=== PATIENT | male | born 1970 | race Caucasian/White ===

== ENCOUNTER 2020-01-23 06:54 | Outpatient (NON) | payer OTHER, SELFPAY ==
[2020-01-23 19:54] LABS: SARS-CoV-2 RNA PCR Negative
== END 2020-01-23 06:55 ==
LOC: ANHCOVIDDT 07:17
PROVIDERS: Visit Provider Family Medicine
DX: R68.89 Other general symptoms and signs (principal); Z20.828 Contact with and (suspected) exposure to other viral communicable diseases
CPT/HCPCS: 87635; C9803; U0003

== ENCOUNTER 2023-10-18 09:03 | Emergency (ER) | payer OTHER, SELFPAY ==
--- NOTE | 2023-10-18 09:04 | ED.EXTPRO ---
HPI - Extremity Problem General Chief complaint: Extremity Problem,Nontraumatic Stated complaint: Left Hand Finger Pain Time Seen by Provider: 10/18/23 09:04 Source: patient Mode of arrival: ambulatory Limitations: no limitations History of Present Illness HPI Narrative: Rebekah is a 53-year-old male patient presenting to the clinic today with complaints of left hand index and pinky pain/cyanosis for the past month. He reports over the winter months his hands were ruled cold but not painful at that time. States over the last month the pain has gradually gotten worse. States he is only able to sleep for 15 minutes at a time and the pain worsen wakes him up. Has temperature change (poikilothermia) to his 2nd and 5th finger of the left hand when compared to the other fingers on that hand as well as to the right hand. States has pain with gripping. 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 No known injury to the left hand/fingers. Does not take any medications other than [id number] vitamins. No past medical history known- denies auto immune disorders or Raynauds. Patient has not seen a medical provider in several years. States he has an appointment in 3 weeks with a primary care provider. He denies any chest pain, shortness of breath, or neck pain. Related Data Home Medications Medication Instructions Recorded Confirmed No Home Medications 10/18/23 10/18/23 Allergies Allergy/AdvReac Type Severity Reaction Status Date / Time No Known Allergies Allergy Verified 10/18/23 09:26 Review of Systems Review of Systems: Pertinent positives per HPI. Patient denies any fever, chills, rash, headache, visual changes, dizziness, cough, runny nose, sore throat, shortness of breath, chest pain, palpitations, nausea, vomiting, diarrhea, constipation, abdominal pain, or any urinary issues. PMFSH Comments At the time of my signature, I reviewed and agree with the nursing past medical, surgical, social, and family history. There is no relevant family history pertinent to the patient complaint. Exam Narrative: General: Well-developed, well nourished, in no apparent distress Head: Normocephalic, atraumatic. Cardio: Regular rate and rhythm, s1 and s2 normal, no murmur appreciated. Resp: Clear to auscultation bilaterally, no rhonchi, rales, wheezing or rubs. Musculoskeletal: No deformity, cyanosis at the distal end of the phalenx to the left 2nd finger and 5th finger proximal finger appears white/pale. Tender to palpation over the 2nd finger and 5th finger, poikilothermia to the 2nd and 5th finger of the left hand, all other fingers are warm, pain with flexion to the left 2nd and 5th finger, muscle strength strong and equal, left radial pulse strong, no edema, normal gait and station Course Course Emergency Course: Portions of this record may have been created with voice recognition software. Level of Care: Express Care Visit Vital Signs Vital signs: Vital signs reviewed MDM - Extremity (Nontraumatic) MDM Narrative Medical decision making narrative: At the time of visit patient is sitting in the exam table. Patient appears to be nontoxic. Plan: Discussed patient case with Dr. Quintana-collaborating provider. Recommend transfer to the ER to r/o arterial blood clot. Patient declined going to the ER at this time as he does not want to sit in the waiting room all day and not be able to sleep because he has to go into work tonight. States he is out of time off and he does not want to get into trouble at work. AMA form completed and risk and benefits were reviewed with that patient and and they voiced understanding and patient signed AMA form. Contact information for [facility] was given to the patient. May call to schedule an appointment as soon as possible. Recommend going to the ER if symptoms persist/worsen and he voices understanding. Differential Diagno
[2023-10-18 09:16] VITALS: BP 126/87; PULSE 69; RESP 16; TEMP 36.8; O2SAT 100
== END 2023-10-18 09:49 | disposition left against medical advice (07) ==
PROVIDERS: Emergency Provider Nurse Practitioner Family
DX: R20.2 Paresthesia of skin (principal); R23.0 Cyanosis
CPT/HCPCS: 99212; G0463